=== PATIENT | male | born 1975 | race Caucasian/White ===

== ENCOUNTER 2017-07-07 14:33 | Emergency (ER) | payer OTHER ==
[~2017-07-07] VITALS: Ht 180.3 cm; Wt 190.9 kg
[~2017-07-07 14:33] MED LIST: OXCA600T3 PO; QUET200T29 PO; TRAM50TA4 PO; VENL75CA55 PO; VITAD1000 PO
[2017-07-07] MEDS ORDERED: ALBUTEROL SULFATE 2.5 MG/0.5 ML NEB SOLUTION NEB ONE (15:15)
[2017-07-07] MEDS ORDERED: 0.9% SODIUM CHLORIDE 5 ML NEB SOLUTION NEB ONE (15:31)
[2017-07-07] MEDS ORDERED: 0.9% SODIUM CHLORIDE 15 ML NEB SOLUTION NEB ONE (15:31)
[2017-07-07 15:53] LABS: HEMATOCRIT 47.8 % (41-53); HEMOGLOBIN 15.5 g/dL (13.5-17.5); MEAN CORPUSCULAR HEMOGLOBIN 28.8 pg (26.0-34.0); MEAN CORPUSCULAR HGB CONC 32.4 G/dL (31.0-37.0); MEAN CORPUSCULAR VOLUME 89 fL (80-100); PLATELET COUNT (AUTO) 216 K/uL (150-450); RED BLOOD CELL COUNT(AUTO) 5.38 MIL/uL (4.50-5.90); WHITE BLOOD COUNT (AUTO) 13.1 K/uL (4.5-11.0)
[2017-07-07] MEDS ORDERED: TraMADol HCL 50 MG TABLET PO ONE (16:00)
[2017-07-07] MEDS ORDERED: CEFTAROLINE 600 MG/D5W 250 ML IV ONE (16:00)
[2017-07-07 16:02] LABS: ANION GAP 6 mmol/L (8-16); CALCIUM, TOTAL 9.3 mg/dL (8.8-10.5); CARBON DIOXIDE 28 mmol/L (22-29); CHLORIDE 98 mmol/L (98-107); GLOMERULAR FILTR. RATE CALC > 60 mL/min (>60); POTASSIUM 3.7 mmol/L (3.5-5.1); SODIUM SERUM 132 mmol/L (136-145); UREA NITROGEN, BLOOD 11 mg/dL (7-18)
[2017-07-07 16:10] LABS: ALANINE AMINOTRANSFERASE 47 U/L (12-78); ALBUMIN 3.3 g/dL (3.4-5.0); ASPARTATE AMINOTRANSFERASE 19 U/L (15-37); BILIRUBIN,TOTAL 0.9 mg/dL (0.1-1.0); TOTAL PROTEIN, SERUM 7.8 g/dL (6.4-8.2)
[2017-07-07 16:30] LABS: BAND NEUTROPHILS % (MANUAL) 3 % (1-5); EOSINOPHILS % (MANUAL) 2 % (1-6); LYMPHOCYTES % (MANUAL) 22 % (22-44); TOTAL CELLS COUNTED 100
[2017-07-07 16:31] LABS: RBC MORPHOLOGY COMMENT NORMAL RBC MORPH
[2017-07-07 16:45] VITALS: BP 141/78
== END 2017-07-07 17:04 | disposition home or self-care (01) ==
LOC: EMS 14:33
DX: L03.115 Cellulitis of right lower limb (principal)
CPT/HCPCS: 36415; 73562; 80053; 85007; 85027; 87040; 94640; 96374; 99285; J0712; J7613